=== PATIENT | male | born 1975 | race African-American/Black ===

== ENCOUNTER 2016-06-29 17:45 | Emergency (ER) | payer OTHER ==
[~2016-06-29] VITALS: Ht 185.4 cm; Wt 90.7 kg
[2016-06-29 17:51] VITALS: BP 148/92
--- NOTE | 2016-06-29 19:57 | ED UPPER/LOWER EXTREMITY COMPL ---
History of Present Illness General Chief Complaint: Upper Extremity Injury Stated Complaint: SPLINTER TO RIGHT FOREARM. WORK RELATED INJURY Source: patient Exam Limitations: no limitations Vital Signs & Intake/Output Vital Signs & Intake/Output Vital Signs Date Time Temp Pulse Resp B/P B/P Pulse O2 O2 Flow FiO2 Mean Ox Delivery Rate 06/29 1751 98.3 78 20 148/92 99 Room Air ED Intake and Output 06/30 0000 06/29 1200 Intake Total Output Total Balance Patient 200 lb Weight Weight Reported by Patient Measurement Method Allergies Coded Allergies: No Known Allergies (06/29/16) Reconcile Medications Cephalexin (Keflex) 500 MG CAPSULE 1 CAP PO 4 TIMES/DAY INFECTION PREVENTION X 1 WEEK Ibuprofen 800 MG TABLET 1 TAB PO TID PRN PAIN Triage Note: TRIAGE: PT TO ER C/C 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 STATES "MOST OF THE SPLINTER" WAS REMOVED BUT THERE MIGHT BE A PIECE STILL IN THERE. STATES WAS TRYING TO TAKE A WOODEN PALLET DOWN WHEN THE CORNER OF IT STUCK HIM. UNSURE OF LAST TETANUS, STATES "IT'S BEEN A WHILE" Triage Nurses Notes Reviewed? yes Onset: Abrupt Duration: hour(s): Timing: recent history Severity: moderate Pain/Injury Location: Right: Forearm. Method of Injury: "I got a splinter stuck in my right arm." Modifying Factors: Improves With: rest. Associated Symptoms: "I pulled the splinter out." HPI: 41 yo gentleman presents after a splinter injury approximately 2-3 hours previously at work. He notes that he was at work when a splinter penetrated his right medial forearm superficially, less than 1 inch, wood. He pulled the splinter out but is uncertain if there is any wood left inside. He notes no pain, swelling, redness. He is otherwise well. Past History Travel History Traveled to [place] past 21 day No Medical History Any Pertinent Medical History? see below for history Neurological: NONE EENT: NONE Cardiovascular: NONE Respiratory: NONE Gastrointestinal: NONE Hepatic: NONE Renal: NONE Musculoskeletal: NONE Psychiatric: NONE Endocrine: NONE Blood Disorders: NONE Cancer(s): NONE TRUCK DRIVER/Reproductive: NONE Surgical History Surgical History: none Psychosocial History What is your primary language Macedonian Tobacco Use: Quit >30 days ago ETOH Use: occasional use Illicit Drug Use: marijuana Family History Hx Contributory? No Review of Systems Review of Systems Constitutional: Reports: no symptoms. EENTM: Reports: no symptoms. Respiratory: Reports: no symptoms. Cardiovascular: Reports: no symptoms. Gastrointestinal/Abdominal: Reports: no symptoms. Genitourinary: Reports: no symptoms. Musculoskeletal: Reports: no symptoms. Skin: Reports: no symptoms. Neurological/Psychological: Reports: no symptoms. Hematologic/Endocrine: Reports: no symptoms. Immunological: Reports: no symptoms. All Other Systems: Reviewed and Negative Physical Exam Physical Exam General Appearance: well developed/nourished, mild distress Head: atraumatic Eyes: Bilateral: normal appearance. Ears, Nose, Throat: normal pharynx, normal ENT inspection, hearing grossly normal Neck: normal inspection, supple Cardiovascular/Respiratory: regular rate/rhythm Back: normal inspection Hand Right: right forearm with puncture wound, no sign of infection. no foreign body palpable. Skin: intact, normal color, warm/dry Lymphatic: no anterior cervical magda Progress Differential Diagnosis: infection vs puncture wound vs retained foreign body. Plan of Care: Current Medications Sig/Renae Start time Last Medication Dose Stop Time Status Admin Acetaminophen 975 MG ONCE ONE 06/30 1999 CAN (Tylenol) 06/29 2000 Ibuprofen 800 MG ONCE ONE 06/30 1999 CAN (Motrin) 06/29 2000 Tetanus/Diphtheria 0.5 ML ONCE ONE 06/30 1999 CAN Toxoids Adsorbed 06/29 2000 (Decavac) Diagnostic Imaging: Viewed by Me: Radiology Read. Discussed w/RAD: Radiology Read. Radiology Impression: RIGHT FOREARM... NO FOREIGN BODY NOTED... TENDON ISSUES NOTED BELOW. Comments: PATIENT: ZAHEER ZHENG PRESENT AGE: 41 PATIENT ACCOUNT NO: [id number] : 71 LOCATION: [facility] ORDERING PHYSICIAN: EDDIE CANTU MD SERVICE DATE: 06/29/16 EXAM TYPE: RAD - XRY-FOREARM, RIGHT EXAMINATION: XR FOREARM, RIGHT CLINICAL INFORMATION: Puncture wound. Question foreign body. COMPARISON: None TECHNIQUE: AP and lateral views of the right forearm were obtained. FINDINGS: No fracture. No dislocation. No radiopaque foreign body or subcutaneous emphysema. There is bulky calcified enthesopathy of the distal triceps tendon attachment. IMPRESSION: No radiopaque foreign body seen. DICTATED BY: FELICITY FOREMAN MD DATE/TIME DICTATED:06/29/162057 SPOT CLEANER:JACQUE DATE/TIME TRANSCRIBED:06/29/162057 CONFIDENTIAL, DO NOT COPY WITHOUT APPROPRIATE AUTHORIZATION. <Electronically signed in Other Vendor System> SIGNED BY: FELICITY FOREMAN MD [id number] Departure Departure Disposition: HOME OR SELF CARE Condition: Stable Clinical Impression Primary Impression: Puncture wound of right forearm Referrals: UNKNOWN (PCP/Family) Departure Forms: Customer Survey Employee Industrial Accident General Discharge Information Prescriptions: Current Visit Scripts Cephalexin (Keflex) 1 CAP PO 4 TIMES/DAY #28 CAP X 1 WEEK Ibuprofen 1 TAB PO TID PRN PAIN #30 TAB Comments no sign of fb on xray or palpation... discussed at length... gave rx for keflex.. encouraged close follow up.
[2016-06-29] MEDS ORDERED: IBUPROFEN800 M1 PO (20:11)
[2016-06-29] MEDS ORDERED: KEFLEX500 M1 PO (20:11)
--- NOTE | 2016-06-29 21:02 | RADIOLOGY REPORT ---
EXAMINATION: XR FOREARM, RIGHT CLINICAL INFORMATION: Puncture wound. Question foreign body. COMPARISON: None TECHNIQUE: AP and lateral views of the right forearm were obtained. FINDINGS: No fracture. No dislocation. No radiopaque foreign body or subcutaneous emphysema. There is bulky calcified enthesopathy of the distal triceps tendon attachment. IMPRESSION: No radiopaque foreign body seen.
== END 2016-06-29 21:38 ==
LOC: ERH 17:45
DX: S51.831A Puncture wound without foreign body of right forearm, initial encounter (principal); W45.8XXA Other foreign body or object entering through skin, initial encounter; Y92.9 Unspecified place or not applicable; Y93.9 Activity, unspecified
CPT/HCPCS: 73090-RT; 90714